=== PATIENT | male | born 2000 | race Hispanic/Latino ===

== ENCOUNTER 2018-08-20 07:05 | Day surgery (SDC) | payer MEDICAID ==
[~2018-08-20] VITALS: Ht 170.2 cm; Wt 95.3 kg
[~2018-08-20 07:05] MED LIST: AMOXICILLIN500 MG PO; MEDROL4 M1 PO; PROVENTIL HFA IN
[2018-08-20] MEDS ORDERED: NORCO1 TA1 PO (09:33)
[2018-08-20] MEDS ORDERED: MOTRIN800 MG PO (09:33)
[2018-08-20 13:05] VITALS: BP 133/72
== END 2018-08-20 10:13 | disposition home or self-care (01) ==
LOC: ORM 07:05
PROVIDERS: ATTEND Surgery
DX: L05.91 Pilonidal cyst without abscess (principal)
CPT/HCPCS: J2710